=== PATIENT | female | born 2000 | race Caucasian/White ===

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

== ENCOUNTER 2022-11-22 21:47 | Emergency (ER) | payer MEDICAID, SELFPAY ==
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
[2022-11-22 22:00] VITALS: BP 157/90; PULSE 102; RESP 18; TEMP 36.7; O2SAT 99; BMI 29.5
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
[2022-11-23] MEDS: Ibuprofen 600 MG TABLET PO (00:39)
== END 2022-11-23 00:45 | disposition home or self-care (01) ==
PROVIDERS: Emergency Provider Internal Medicine
DX: S20.213A Contusion of bilateral front wall of thorax, initial encounter (principal); R07.89 Other chest pain; V47.5XXA Car driver injured in collision with fixed or stationary object in traffic accident, initial encounter; Y93.9 Activity, unspecified; Y92.410 Unspecified street and highway as the place of occurrence of the external cause; Y99.9 Unspecified external cause status
CPT/HCPCS: 71045; 99283